=== PATIENT | female | born 1990 | race Caucasian/White ===

== ENCOUNTER 2019-07-11 22:49 | Emergency (ER) | payer OTHER ==
--- NOTE | 2019-07-12 03:54 | ED ---
Head Injury - HPI Summary HPI Summary: The patient is a 28 y/o female presenting to [facility] with a chief complaint of head injury yesterday at 1600. She reports that she was getting water bottles from the top of her fridge when three of them fell off and hit her in the forehead. She did not initially feel symptomatic, and she continued to write and finished a paper. She then noticed that she was dizzy with pressure in the left side of her head, and she felt that she was thinking more slowly than usual. She additionally developed nausea without any vomiting. She denies any chest pain, shortness of breath, or LOC. Symptoms are currently rated 6/10 in severity. She was going to schedule an appointment with her PCP, but she called [facility] and they recommended she come to the ED. No PMHx. Nonsmoker, no EtOH, no substance use. Medications reviewed. Allergies noted. - History Of Current Complaint Chief Complaint: EDHeadInjury Stated Complaint: CANS FELL AND HIT MY HEAD Time Seen by Provider: 07/12/19 03:40 Hx Obtained From: Patient Mechanism Of Injury: Blunt Trauma - hit in head with water bottles Onset/Duration: Started Hours Ago, Still Present Onset of Pain: Immediate Severity Currently: Moderate Severity Initially: Mild Pain Intensity: 6 Pain Scale Used: 0-10 Numeric Location of Head Injury: Frontal - left Character: Dull Aggravating Factor(s): Other: - nothing Alleviating Factor(s): Other: - nothing Associated Signs And Symptoms: Headache, Other: - delayed cognition; Negative: LOC, CP, SOB - Allergies/Home Medications Allergies/Adverse Reactions: Allergies Allergy/AdvReac Type Severity Reaction Status Date / Time No Known Allergies Allergy Verified 07/12/19 03:33 PMH/Surg Hx/FS Hx/Imm Hx Infectious Disease History: No Infectious Disease History: Denies: Traveled Outside the [place] in Last 30 Days - Social History Alcohol Use: None Substance Use Type: Reports: None Smoking Status (MU): Never Smoked Tobacco Review of Systems Negative: Chest Pain Negative: Shortness Of Breath Neurological: Other - dizziness, delayed cognition; Negative: LOC Positive: Headache - pressure All Other Systems Reviewed And Are Negative: Yes Physical Exam - Summary Physical Exam Summary: Constitutional: Well-developed, Well-nourished, Alert. (-) Distressed Skin: Warm, Dry HENT: Normocephalic; Atraumatic Eyes: Conjunctiva normal Neck: Musculoskeletal ROM normal neck. (-) JVD, (-) Stridor, (-) Tracheal deviation Cardio: Rhythm regular, rate normal, Heart sounds normal; Intact distal pulses; The pedal pulses are 2+ and symmetric. Radial pulses are 2+ and symmetric. Pulmonary/Chest wall: Effort normal. (-) Respiratory distress, (-) Wheezes, (-) Rales Abd: Soft, (-) tenderness, (-) Distension, (-) Guarding, (-) Rebound Musculoskeletal: (-) Edema Neuro: Alert, Oriented x3 Psych: Mood and affect Normal Triage Information Reviewed: Yes Vital Signs On Initial Exam: Initial Vitals Temp Pulse Resp BP Pulse Ox 97.8 F 87 16 129/91 99 07/11/19 23:01 07/11/19 23:01 07/11/19 23:01 07/11/19 23:01 07/11/19 23:01 Vital Signs Reviewed: Yes Procedures - Sedation Patient Received Moderate/Deep Sedation with Procedure: No Diagnostics - Vital Signs Vital Signs Temp Pulse Resp BP Pulse Ox 07/12/19 03:36 78 111/70 99 07/12/19 03:35 78 99 07/12/19 01:41 98.1 F 82 16 133/83 96 07/11/19 23:01 97.8 F 87 16 129/91 99 - Laboratory Lab Statement: Any lab studies that have been ordered have been reviewed, and results considered in the medical decision making process. Head Injury Course/Dx Course Of Treatment: Patient is a 28 y/o female presenting with blunt injury to head last night at 1600 via water bottle falling off of her fridge. She is now experiencing a headache, dizziness, nausea, and delayed cognition without any LOC, vomiting, chest pain, or shortness of breath. Physical exam benign without any neurological deficits at this time. She is safe for discharge. Patient agreeable with plan, will follow up with PCP tomrrow. - Diagnoses Provider Diagnoses: Minor head injury Discharge ED - Sign-Out/Discharge Documenting (check all that apply): Patient Departure - Patient will be discharged home. - Discharge Plan Condition: Stable Disposition: HOME Patient Education Materials: Head Injury (ED) Forms: *School Release Referrals: Skyler GREENE,Mónica Paz [Primary Care Provider] - 3 Days Additional Instructions: Follow up with your primary care provider as you have scheduled. Return to the emergency department for any new or worsening symptoms. - Attestation Statements Document Initiated by Mitra: Yes Documenting Scribe: Sia Duke Provider For Whom Mitra is Documenting (Include Credential): Dr. Mandeep James MD Scribe Attestation: ISia, scribed for Dr. Mandeep James MD on 07/13/19 at 1339. Status of Scribe Document: Ready
[2019-07-12 04:17] VITALS: BP 118/76
== END 2019-07-12 04:16 | disposition home or self-care (01) ==
LOC: ED 22:49
DX: S09.90XA Unspecified injury of head, initial encounter (principal); W20.8XXA Other cause of strike by thrown, projected or falling object, initial encounter; Y92.000 Kitchen of unspecified non-institutional (private) residence as the place of occurrence of the external cause
CPT/HCPCS: 99282